=== PATIENT | female | born 1985 | race Caucasian/White ===

== ENCOUNTER 2017-10-19 19:54 | Emergency (ER) | payer BC ==
[~2017-10-19] VITALS: Ht 147.3 cm; Wt 93.0 kg
[~2017-10-19 19:54] MED LIST: COUG100S2 PO; GUAI100L4 PO
[2017-10-19 20:00] VITALS: BP 127/75; PULSE 113; RESP 20; TEMP 98.8; O2SAT 100
--- NOTE | 2017-10-19 20:27 | PD ---
HPI Chief Complaint: Cold / Flu Symptoms Time Seen by Provider: 20:14 Travel History International Travel<30 days: No Contact w/Intl Traveler<30days: No Traveled to known affect area: No History of Present Illness HPI 32-year-old otherwise healthy female presents to the emergency room for evaluation of cough for the past 11 days. Patient states symptoms started off as typical upper respiratory infection with mild sore throat, congestion, and cough. The rest of her symptoms improved but the cough has lingered. It is nonproductive and the worst in the morning. Today she developed right-sided upper chest pain that radiates into her back and is worsened with coughing or deep breathing. She denies any shortness of breath. She has been taking over- the-counter medications without significant relief in symptoms. She denies any fevers. No chronic medical conditions or daily medications. Denies possibility of . PFSH Past Medical History Medical History: Denies Significant Hx Diminished Hearing: No Immunizations Current: Yes Tetanus Vaccination: < 5 Years Influenza Vaccination: Yes ?: Not : 2 Para: 2 Past Surgical History Gynecologic Surgery: Yes (ablasion-IUD perforation ) Social History Alcohol Use: Yes (ocassionally) Tobacco Use: No Substance Use: No Allergies-Medications (Allergen,Severity, Reaction): Coded Allergies: No Known Allergies (Verified Adverse Reaction, Unknown, 10/19/17) Reported Meds & Prescriptions Reported Meds & Active Scripts Active No Active Prescriptions or Reported Medications Review of Systems Except as stated in HPI: all other systems reviewed are Neg Physical Exam Narrative GENERAL: Well-nourished, well-developed female in no acute distress. Afebrile. Ambulatory. SKIN: Focused skin assessment warm/dry. HEAD: Normocephalic. EYES: No scleral icterus. No injection or drainage. ENT: Mucosa pink and moist. No erythema or exudates. No uvular edema. No uvular , palatal, or tonsillar deviation. Airway patent. Nasal turbinates appear normal without nasal blood, purulent drainage or septal hematoma. EARS: Bilateral pinnae and external canals appear within normal limits. Bilateral tympanic membranes without erythema, dullness or perforation. NECK: Supple, trachea midline. No JVD or lymphadenopathy. CARDIOVASCULAR: Regular rate and rhythm without murmurs, gallops, or rubs. RESPIRATORY: Breath sounds equal bilaterally. No accessory muscle use. No crackles, rales, wheezes, or rhonchi. Data Data Last Documented VS Vital Signs Date Time Temp Pulse Resp B/P (MAP) Pulse Ox O2 Delivery O2 Flow Rate FiO2 10/19/17 20:00 98.8 113 20 127/75 (92) 100 Orders Orders Chest, Pa & Lat (10/19/17 ) Electrocardiogram (10/19/17 ) MDM Medical Decision Making Medical Screen Exam Complete: Yes Emergency Medical Condition: Yes Medical Record Reviewed: Yes Differential Diagnosis URI, bronchitis, pneumonia, pleuritis Narrative Course 32-year-old female presents to the emergency room for evaluation of nonproductive cough for the past 11 days. Symptoms started off as typical upper respiratory infection with sore throat, cough, congestion. Sore throat and congestion have improved but cough is persistent. No fevers. She developed right upper chest pain with coughing and deep breathing earlier today. Pain radiates to the back. Patient denies any shortness of breath. She is afebrile and well-appearing in the emergency room. No increased work of breathing. 100% on room air. EKG shows sinus tachycardia with a rate of [address] changes. Chest x-ray shows inflammatory changes in the right upper lobe without consolidation. Given history and physical exam, I suspect patient may be developing a community-acquired pneumonia. She will be treated with azithromycin, Tessalon Perles, and ibuprofen. Told to follow-up with primary care physician or return for worsening symptoms. She understands and agrees to plan. Diagnosis Primary Impression: Community acquired pneumonia Qualified Codes: J18.1 - Lobar pneumonia, unspecified organism Referrals: Primary Care Physician Additional Instructions: Tessalon Perles as directed, as needed for cough. Azithromycin as directed, until none. Ibuprofen as directed, as needed for pain. Follow-up with primary care physician. Return for worsening symptoms. Med/Other Pt SpecificInfo: Prescription(s) given Scripts Benzonatate (Tessalon Perles) 100 Mg Cap 100 MG PO TID Y for COUGH, #21 CAP 0 Refills Prov: Mariela Bai MD 10/19/17 Ibuprofen (Ibuprofen) 600 Mg Tab 600 MG PO Q8HR Y for PAIN, #21 TAB 0 Refills Prov: Mariela Bai MD 10/19/17 Azithromycin (Azithromycin) 250 Mg Tab 250 MG PO DIRECTED for Infection, #6 TAB 0 Refills Take 2 tabs (500 mg) on day 1 then 1 tab daily x 4 days. Prov: Mariela Bai MD 10/19/17 Disposition: 01 DISCHARGE HOME Condition: Stable Marga eLwis Oct 19, 2017 20:27
--- NOTE | 2017-10-19 20:38 | RADRPT ---
EXAM DATE/TIME: 10/19/2017 20:31 [facility] COMPARISON: No previous studies available for comparison. INDICATIONS : Cough, congestion, flu-like symptoms for 11 days MEDICAL HISTORY : None. SURGICAL HISTORY : None. ENCOUNTER: Initial ACUITY: 1 week PAIN SCORE: 0/10 LOCATION: Bilateral chest FINDINGS: There is questionable mild infiltrate right upper lobe right middle lobe. Heart and mediastinum are u nremarkable for technique. CONCLUSION: Questionable mild infiltrates on the right side most likely inflammatory without focal consolidation. Sharon Lopez MD on October 19, 2017 at 20:35 Board Certified Radiologist. This report was verified electronically.
[2017-10-19] MEDS ORDERED: BENZ100 PO (20:41)
[2017-10-19] MEDS ORDERED: IBUP-232 PO (20:41)
[2017-10-19] MEDS ORDERED: AZIT250T3 PO (20:41)
--- NOTE | 2017-10-20 14:31 | EKG ---
Date Performed: 10/19/2017 Time Performed: 20:25:24 PTAGE: 32 years EKG: SINUS TACHYCARDIA ABNORMAL RHYTHM ECG NO PREVIOUS TRACING DOCTOR: Benny Whitmore Interpretating Date/Time 10/20/2017 14:28:47
== END 2017-10-19 20:54 | disposition home or self-care (01) ==
LOC: PHEFT 19:54
DX: J18.1 Lobar pneumonia, unspecified organism (principal); R00.0 Tachycardia, unspecified
CPT/HCPCS: 71046; 93005; 99284